=== PATIENT | female | born 1975 | race Caucasian/White ===

== ENCOUNTER 2024-10-10 10:13 | Emergency (ER) | payer OTHER ==
[2024-10-10] MEDS ORDERED: TDAP (DIPHTH,PERTUSS(ACELL),TET VAC) 0.5 ML VIAL IMVAC ONE (10:52)
[2024-10-10] MEDS ORDERED: NA CHLORIDE 0.9% 1,000 ML ONE (11:16)
[2024-10-10 11:34] LABS: Absolute Lymphocytes (CBC) 1.7 K/uL (0.7-4.9); Hematocrit 40.2 % (36.0-45.0); Hemoglobin 13.3 g/dL (12.0-15.0); MCH 29.7 pg (27.0-35.0); MCHC 33.2 g/dL (32.0-36.0); MCV 89.4 fL (80-100); MPV 9.4 fL (7.6-11.3); Nucleated RBC Absolute Count 0.0 (0-0); Nucleated Red Blood Cells % 0.0 % (0-0); RBC Red Blood Cell Count 4.50 M/uL (3.86-4.86); White Blood Count 9.20 thou/uL (4.3-10.9)
[2024-10-10 11:48] LABS: PT Prothrombin Time 12.4 SECONDS (10-13.0); PTT, Activated Partial Thromb 31.2 SECONDS (27.2-37.4); Protime INR 1.1
[2024-10-10] MEDS ORDERED: DERMABOND SKIN ADHESIVE TOP ONE (11:55)
[2024-10-10] MEDS ORDERED: ACETAMINOPHEN 500 MG TAB ONE (11:56)
[2024-10-10 11:58] LABS: ALT/SGPT 21 U/L (13-56); AST/SGOT 17 U/L (15-37); Albumin 3.7 g/dL (3.4-5.0); Albumin/Globulin Ratio 1.1 (1.1-1.8); Alkaline Phosphatase 46 U/L (45-117); Anion Gap 7.8 mEq/L (5.0-15.0); BUN Blood Urea Nitrogen 21 mg/dL (7-18); Bilirubin Indirect, Calculated 0.4 mg/dL (0.2-0.8); Globulin 3.5 g/dL (2.3-3.5); Glucose Level 89 mg/dL (74-106); Magnesium 2.1 mg/dL (1.6-2.4); Potassium 3.8 mEq/L (3.5-5.1)
[2024-10-10 11:59] LABS: Troponin High Sensitivity < 3.0 pg/mL (<58.9)
--- NOTE | 2024-10-10 12:04 | RAD REPORT ---
EXAM: Chest Single View HISTORY: 48 years Female DIZZINESS COMPARISON: No prior exams FINDINGS: LUNGS/PLEURA: The lungs are clear. No pleural effusions or pneumothorax. No pulmonary edema. CARDIAC/MEDIASTINUM: The cardiac silhouette is within normal limits. UPPER ABDOMEN: No significant abnormality. BONES: No acute abnormality. LINES/TUBES/OTHER: N/A IMPRESSION: No evidence of acute cardiopulmonary disease.
--- NOTE | 2024-10-10 12:33 | EDPHYS ---
Physician Documentation [facility] Name: Beatriz Thrasher Age: 48 yrs Sex: Female : 1975 Arrival Date: 10/10/2024 Time: 10:13 Bed 8 Private MD: ED Physician Jorge Dangelo HPI: 10/10 10:47 This 48 yrs old Female presents to ER via Ambulatory with complaints of Passed Out ms3 Prior To Arrival, Facial Injury, Laceration To Scalp/Face. 10:47 48-year-old female past medical history of hypothyroidism, psoriatic arthritis, ms3 anxiety, kidney stones presents to the emergency department status post syncopal episode approximately 1 hour prior to arrival. Patient states that she has a history of syncope and has had 4 other episodes. Patient endorses nausea, denies vomiting, headache. Patient denies any alleviating or inciting factors. Patient states she had syncope after she stood up from lying down.. Historical: - Allergies: 10:19 No Known Allergies; iw - Home Meds: 10:19 Mounjaro 7.5 mg/0.5 mL subcutaneous Pen Injector [Active]; Humira 40 mg/0.8 mL iw subcutaneous Syringe Kit as directed on dose pack [Active]; levothyroxine 25 mcg capsule [Active]; Zoloft 50 mg oral tablet daily [Active]; - PMHx: 10:19 Hypothyroidism; psoriatic arthritis; Anxiety; Kidney stone; iw - PSHx: 10:19 Lithotripsy; section; iw - Immunization history:: Last tetanus immunization: < 10 years ago. - Infectious Disease History:: Denies. - Social history:: Smoking status: Patient denies any tobacco usage or history of. ROS: 10:47 Constitutional: Negative for fever, and chills. Cardiovascular: Negative for chest ms3 pain, and palpitations. Respiratory: Negative for shortness of breath, cough, wheezing, and pleuritic chest pain, Abdomen/GI: Negative for abdominal pain, nausea, vomiting, diarrhea, and constipation, MS/Extremity: Negative for injury and deformity, 10:47 Skin: Positive for laceration(s), of the left eyelid, Exam: 10:47 Constitutional: This is a well developed, well nourished patient who is awake, alert, ms3 and in no acute distress. Cardiovascular: Regular rate and rhythm with a normal S1 and S2. No gallops, murmurs, or rubs. Normal PMI, no JVD. No pulse deficits. Respiratory: Lungs have equal breath sounds bilaterally, clear to auscultation and percussion. No rales, rhonchi or wheezes noted. No increased work of breathing, no retractions or nasal flaring. Abdomen/GI: Soft, non-tender, with normal bowel sounds. No distension or tympany. No guarding or rebound. No evidence of tenderness throughout. 10:47 Head/face: Noted is a laceration(s), that is superficial, of the left eyelid, 12:30 ECG was reviewed by the Attending Physician. ms3 Vital Signs: 10:19 BP 123 / 84; Pulse 74; Resp 16; Pulse Ox 100% on R/A; iw 12:05 BP 103 / 68; Pulse 79; Resp 16; Pulse Ox 100% on R/A; hb Laceration: 12:30 Wound Repair of 2cm ( 0.8in ) subcutaneous laceration to left eyelid. Distal ms3 neuro/vascular/tendon intact. Wound prep: Moderate cleansing by nurse. Skin closed with thin layer Adhesive skin closure using simple sutures and sterile technique. Patient tolerated well. MDM: 10:45 Medical Screening Exam initiated ms3 12:30 Differential Diagnosis: cardiac arrhythmia, cerebrovascular accident, idiopathic ms3 syncope. Data reviewed: vital signs, nurses notes, lab test result(s), EKG, radiologic studies, and as a result, I will discharge patient. I considered the following discharge prescriptions or medication management in the emergency department Medications were administered in the Emergency Department. See MAR. Independent interpretation of the following test(s) in the Emergency Department EKG: See my EKG interpretation above X-Ray: My interpretation is CXR image reviewed by me did not reveal widened mediastinum, PNA, or PTX. Counseling: I had a detailed discussion with the patient and/or guardian regarding the historical points, exam findings, and any diagnostic results supporting the discharge/admit diagnosis, lab results, radiology results, the need for outpatient follow up, to return to the emergency department if symptoms worsen or persist or if there are any questions or concerns that arise at home. Special discussion: I discussed with the patient/guardian in detail that at this point there is no indication for admission to the hospital. It is understood, however, that if the symptoms persist or worsen the patient needs to return immediately for re-evaluation. ED course: Discussed labs, EKG, chest x-ray findings with patient. Patient to follow-up with primary care physician in 2 to 3 days. Patient understands and agrees with plan. All questions were answered. Return precautions discussed include worsening symptoms, or any other concerns. On reevaluation patient is alert and orient x 4, no apparent distress, nontoxic-appearing, speaking full sentences.. 10/10 10:46 Order name: Basic Metabolic Panel; Complete Time: 12:04 ms3 10/10 10:46 Order name: CBC with Diff; Complete Time: 12:04 ms3 10/10 10:46 Order name: Hepatic Function; Complete Time: 12:04 ms3 10/10 10:46 Order name: Magnesium; Complete Time: 12:04 ms3 10/10 10:46 Order name: Protime (+inr); Complete Time: 12:04 ms3 10/10 10:46 Order name: Ptt, Activated; Complete Time: 12:04 ms3 10/10 10:46 Order name: Troponin High Sensitivity; Complete Time: 12:04 ms3 10/10 10:46 Order name: Chest Single View XRAY; Complete Time: 12:18 ms3 10/10 10:46 Order name: EKG; Complete Time: 10:46 ms3 10/10 10:46 Order name: Cardiac monitoring; Complete Time: 11:21 ms3 10/10 10:46 Order name: EKG - Nurse/Tech; Complete Time: 12:05 ms3 10/10 10:46 Order name: IV Saline Lock; Complete Time: 11:21 ms3 10/10 10:46 Order name: Labs collected and sent; Complete Time: 11:21 ms3 10/10 10:46 Order name: NPO; Complete Time: 11:21 ms3 10/10 10:46 Order name: O2 Per Protocol; Complete Time: 11:21 ms3 10/10 10:46 Order name: O2 Sat Monitoring; Complete Time: 11:21 ms3 EC:30 Rate is 65 beats/min. Rhythm is regular. QRS [place] is Normal. [place] interval is normal. QRS ms3 interval is normal. Clinical impression: Normal ECG. Interpreted by me. Reviewed by me. Administered Medications: 11:21 Drug: Boostrix Tdap IM 0.5 ml IM once; as a single dose Route: IM; Site: right deltoid; bp 11:21 Drug: NS 0.9% IV 1000 ml IV at 1 bolus Per protocol; to be given as a bolus over 60 bp minutes Route: IV; Rate: 1 bolus; Site: right antecubital; Disposition Summary: 10/10/24 12:32 Discharge Ordered Notes: Location: Home ms3 Condition: Stable ms3 Diagnosis - Syncope ms3 - Laceration without foreign body of left eyelid and periocular area, initial ms3 encounter Followup: ms3 - With: Lm Milton MD - When: 2 - 3 days - Reason: Recheck today's complaints Discharge Instructions: - Discharge Summary Sheet ms3 - Laceration Care, Adult, [id number] ms3 - Syncope, [id number] ms3 Forms: - Medication Reconciliation Form ms3 - Antibiotic Education ms3 - Prescription Opioid Use ms3 - Patient Portal Instructions ms3 - Leadership Thank You Letter ms3 Signatures: Dispatcher [employer] Valery Elkins, FARIBA LINK Beatriz Nath RN FARIBA Lucien Owens, RN RN Jorge Mesa DO DO ms3 Corrections: (The following items were deleted from the chart) 10:21 10:19 PMHx: Depressive disorder; [facility] 10:21 10:19 PMHx: Kidney disease; [facility] 10:52 10:47 Chest Single View+[email or web address] ordered. EDMS EDMS
--- NOTE | 2024-10-10 12:33 | ER ---
Nurse's Notes [facility] Name: Beatriz Thrasher Age: 48 yrs Sex: Female : 1975 Arrival Date: 10/10/2024 Time: 10:13 Bed 8 Private MD: Diagnosis: Syncope;Laceration without foreign body of left eyelid and periocular area, initial encounter Presentation: 10/10 10:18 Chief complaint: Patient states: she got up quickly from standing, felt her self start iw to faint, she woke up on the floor , it was quick, she hit her left eye on a stool, [place] , now she feels okay but has pain to her eyelid. 10:18 Acuity: ADITYA 3 iw 10:19 Coronavirus screen: At this time, the client does not indicate any symptoms associated iw with coronavirus-19. Ebola Screen: No symptoms or risks identified at this time. Initial Sepsis Screen: Does the patient meet any 2 criteria? No. Patient's initial sepsis screen is negative. Does the patient have a suspected source of infection? No. Patient's initial sepsis screen is negative. Risk Assessment: Do you want to hurt yourself or someone else? Patient reports no desire to harm self or others. Onset of symptoms was October 10, 2024. 10:19 Method Of Arrival: Ambulatory iw Historical: - Allergies: 10:19 No Known Allergies; iw - Home Meds: 10:19 Mounjaro 7.5 mg/0.5 mL subcutaneous Pen Injector [Active]; Humira 40 mg/0.8 mL iw subcutaneous Syringe Kit as directed on dose pack [Active]; levothyroxine 25 mcg capsule [Active]; Zoloft 50 mg oral tablet daily [Active]; - PMHx: 10:19 Hypothyroidism; psoriatic arthritis; Anxiety; Kidney stone; iw - PSHx: 10:19 Lithotripsy; section; iw - Immunization history:: Last tetanus immunization: < 10 years ago. - Infectious Disease History:: Denies. - Social history:: Smoking status: Patient denies any tobacco usage or history of. Screenin:45 [facility] ED Fall Risk Assessment (Adult) History of falling in the last 3 months, hb including since admission Yes- single mechanical fall (1 pt) Confusion or Disorientation No (0 pts) Intoxicated or Sedated No (0 pts) Impaired Gait No (0 pts) Mobility Assist Device Used No (0 pt) Altered Elimination No (0 pt) Score/Fall Risk Level 0 - 2 = Low Risk Oriented to surroundings, Maintained a safe environment, Educated pt \T\ family on fall prevention, incl call for assistance when getting out of bed. Abuse screen: Denies threats or abuse. Denies injuries from another. Nutritional screening: No deficits noted. Nutritional screening: No deficits noted. 12:00 Tuberculosis screening: No symptoms or risk factors identified. hb Assessment: 10:45 General: Appears in no apparent distress. Behavior is calm, cooperative. Pain: Pain hb currently is 3 out of 10 on a pain scale. Neuro: Level of Consciousness is awake, alert, obeys commands, Oriented to person, place, time, situation. Cardiovascular: Patient's skin is warm and dry. Respiratory: Respiratory effort is even, unlabored, Respiratory pattern is regular, symmetrical. GI: No signs and/or symptoms were reported involving the gastrointestinal system. : No signs and/or symptoms were reported regarding the genitourinary system. EENT: No signs and/or symptoms were reported regarding the EENT system. Derm: Skin is pink, warm \T\ dry. small laceration to left upper eyelid, abrasions to left forehead, bleeding controlled. Musculoskeletal: No signs and/or symptoms reported regarding the musculoskeletal system. mild swelling noted to left fohead. 12:05 Reassessment: Patient appears in no apparent distress at this time. Patient and/or hb family updated on plan of care and expected duration. Pain level reassessed. Patient is alert, oriented x 3, equal unlabored respirations, skin warm/dry/pink. Vital Signs: 10:19 BP 123 / 84; Pulse 74; Resp 16; Pulse Ox 100% on R/A; iw 12:05 BP 103 / 68; Pulse 79; Resp 16; Pulse Ox 100% on R/A; hb ED Course: 10:15 Patient arrived in ED. mr 10:19 Triage completed. iw 10:20 Jorge Dangelo DO is Attending Physician. ms3 10:22 Arm band placed on. iw 10:58 Lucien Owens, RN is Primary Nurse. bp 11:21 Initial lab(s) drawn, by me, sent to lab. Inserted saline lock: 20 gauge in right bp antecubital area, using aseptic technique. Blood collected. Flushed with 10 mL NS. 11:42 Chest Single View XRAY In Process Unspecified. EDMS 12:30 Lm Milton MD is Referral Physician. ms3 Administered Medications: 11:21 Drug: Boostrix Tdap IM 0.5 ml IM once; as a single dose Route: IM; Site: right deltoid; bp 11:21 Drug: NS 0.9% IV 1000 ml IV at 1 bolus Per protocol; to be given as a bolus over 60 bp minutes Route: IV; Rate: 1 bolus; Site: right antecubital; Medication: 12:55 VIS not applicable for this client. hb Outcome: 12:32 Discharge ordered by . ms3 13:02 Patient left the ED. hb Signatures: Dispatcher [employer] EDWI Kasandra Young, Dalton Hoffman mr Valery Luciano, RN RN iw Beatriz Nath RN RN Lucien Owens RN RN bp Jorge Dangelo DO DO ms3 Corrections: (The following items were deleted from the chart) 10:21 10:19 BP 123 / 84; Pulse 74bpm; Resp 16bpm; Pulse Ox 100% RA; iw iw 10:21 10:19 PMHx: Depressive disorder; iw iw 10:21 10:19 PMHx: Kidney disease; iw iw
[2024-10-10 16:25] VITALS: O2SAT 100
[2024-10-10 16:38] VITALS: BP 103/68
== END 2024-10-10 13:02 | disposition home or self-care (01) ==
LOC: ER 10:13
DX: R55 Syncope and collapse (principal); S01.112A Laceration without foreign body of left eyelid and periocular area, initial encounter; Z23 Encounter for immunization
CPT/HCPCS: 93005; 85025; 80048; 36415; 83735; 85610; 80076; 85730; 84484; 71045; 90715; 96372; 99284; 12011; J7030